=== PATIENT | female | born 1990 ===

== ENCOUNTER 2017-02-02 06:57 | Inpatient (IN) | payer OTHER ==
[~2017-02-02] VITALS: Ht 170.2 cm; Wt 87.0 kg
[2017-02-02 07:02] VITALS: BP 135/76
[2017-02-02] MEDS ORDERED: LR 1,000 ML IV SCH (07:15)
[2017-02-02] MEDS ORDERED: LACTATED RINGER'S 1000 ML IV STA (07:15)
[2017-02-02] MEDS ORDERED: AMPICILLIN SOD 2 GM in D5W MINI-BAG PLUS 100 ML IV STA (07:15)
[2017-02-02] MEDS ORDERED: OXYTOCIN 30 UNITS IN 0.9% NaCl 500ML IV BAG (J2590) As Ordered ONE (07:20)
[2017-02-02 07:45] LABS: MEAN CORPUSCULAR HEMOGLOBIN 31.2 pg (27.0-33.0); MEAN CORPUSCULAR HGB CONC 33.9 g/dl (32.0-36.5); MEAN CORPUSCULAR VOLUME 92.1 fl (80.0-96.0); RED CELL DISTRIBUTION WIDTH 12.4 % (11.5-14.5); WHITE BLOOD COUNT 16.6 K/mm3 (4.0-10.0)
[2017-02-02] MEDS ORDERED: PRENTAB9 PO (08:03)
[2017-02-02 08:24] LABS: CORD GAS ABE A -5.3; CORD GAS HCO3 A 20.5 MEQ/L; CORD GAS O2 SAT A 56.9 %; CORD GAS PCO2 A 40.8 mmHg; CORD GAS PH A 7.319 UNITS; CORD GAS PO2 A 25.6 mmHg; CORD GAS SBC A 19.2 MEQ/L; CORD GAS TCO2 A 21.8 MEQ/L; UMBIL& VEN HCO3 18.5 MEQ/L; UMBIL&VEN PARTIAL PRESSURE CO2 37.4 mmHg; UMBIL&VEN. PH 7.312 UNITS; UMBIL&VENOUS O2 SAT 60.1 %; UMBIL&VENOUS TCO2 19.6 MEQ/L
[2017-02-02 08:42] VITALS: BP 137/69
[2017-02-02] MEDS ORDERED: OXYTOCIN DRIP 30 UNITS in APPROPRIATE DILUENT 1 EA IV SCH (08:48)
--- NOTE | 2017-02-02 08:59 | HPEPDOC ---
Obstetrical History & Physical General Date of Admission Feb 02, 2017 at 07:14 History of Present Illness Julia is a 27yo with griffiths IUP at 39w3d who presents to L&D with lower back pain/possible ctx, no LOF, mucousy discharge with tinge of blood, good movement. Started feeling pains around 0300 and have continued. Also endorses an episode of diarrhea in the night. No fevers/chills/n/v/. 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 +GBS in urine excessive weight gain (40 pounds) Height (inches): 67 Pre- weight (lbs.): 154 Admission Weight (lbs.): 194 Change in Weight (lbs.): 40 Past Medical History Past Obstetrical History : Past Obstetrical History: Primgravida PHARMACEUTICAL DETAILER History: No pertinent history Past Medical History Medical History benign Surgical History: Denies/None Family History Significant Family History: No pertinent family hx Social History Marital Status: Family situation: Spouse/partner home Psychosocial History: No pertinent psych hx * Smoker: non-smoker Alcohol: Denies Drugs: denies Imunizations Tdap status: current Influenza Status: current Allergies Coded Allergies: No Known Allergies (Unverified , 02/02/17) Medications Scheduled Multivitamins/ ( 27-0.8 mg) 1 Tab Tab 1 TAB PO DAILY Physical Examination Physical Examination GENERAL: Alert and oriented times three. BREAST: . ABDOMEN: Gravid and non-tender to touch. FETUS: Is vertex (VTX) by sterile vaginal examination (SVE) EXTREMITIES: trace edema of BLE Vital Signs/I&O Vital Signs Date Time Temp Pulse Resp B/P Pulse Ox O2 Delivery O2 Flow Rate FiO2 02/02/17 08:42 100.0 96 18 137/69 Room Air Laboratory Data 24H LABS Laboratory Tests 2 02/02/17 07:25: 02/02/17 08:08: Blood Gas Bicarbonate Standard 18.0, Cord Arterial Base Excess (Standard 19.2, Cord Arterial Bld Oxygen Saturation 56.9, Cord Arterial Blood Base Excess -5.3, Cord Arterial Blood HCO3 20.5, Cord Arterial Blood PCO2 40.8, Cord Arterial Blood PO2 25.6, Cord Arterial Blood Total CO2 21.8, Cord Arterial Blood pH 7.319 , Cord Venous Blood pH 7.312, Cord Venous Blood PCO2 37.4, Cord Venous Blood PO2 28.0, Cord Venous Blood Total CO2 19.6, Cord Venous Blood HCO3 18.5, Cord Venous Blood Base Excess -7.0, Cord Venous Blood Oxygen Saturation 60.1 02/02/17 08:32: Serology Scanned Report Hepatitis B Testing CBC/BMP Laboratory Tests 02/02/17 07:25 Red Blood Count 4.70, Mean Corpuscular Volume 92.1, Mean Corpuscular Hemoglobin 31.2, Mean Corpuscular Hemoglobin Concent 33.9, Red Cell Distribution Width 12.4 Pertinent Laboratoy Data Blood Type: O+ RBC Antibody Screen: Negative HIV: Negative Hepatitis B: Negative Hepatitis C: Unknown Rapid Plasma Reagin: Nonreactive Rubella: Immune Varicella: Immune Chlamydia/Gonorrhea: Negative Group B Streptococcus: Positive Cystic Fibrosis: Positive Glucose Tolerance Test: 94 Anatomy Ultrasound Ultrasound Date: Sep 21, 2016 Placenta Location: Anterior Normal Anatomy: Yes Placenta Previa: No Vaginal Examination Dilation: 10 cm Effacement: 80+% Station: -1, 0 Cervical Consistency: Soft Cervical Position: Other (C/C/0) Presentation: Cephalic presentation Assessment Heart Rate (FHR): 135 Variability: Moderate Accelerations: Positive Decelerations: None Tocometer Contractions: Yes Frequency: regular Duration: greater than 60 seconds Strength: palpated as strong Assessment/Plan Assessment Julia is a 27yo with griffiths IUP at 39w3d in active labor presenting C/C/0 with Cat I FHRT. Regular painful ctx. Cephalic by SCE. PMhx: benign course uncomplicated. GBS positive urine. CF carrier but FOB is negative. 40 lb weight gain. Plan Admit and orient. Managing Attorney and consent. Diet: clear liquids Group B Streptococcus positive: Amp 2/1 Labs and intravenous (IV) per unit protocol. Lactated Ringers (LR): Bolus 1000 mL, then at 125 mL/hr. Anticipate normal spontaneous delivery () Dr. Nely Rm MD CalvertNELY Morton MD Feb 02, 2017 08:59
[2017-02-02] MEDS ORDERED: DIBUCAINE 1% OINTMENT 30GM TOP PRN (09:00)
[2017-02-02] MEDS ORDERED: ANUSOL HC CREAM 30GM TOP PRN (09:00)
[2017-02-02] MEDS ORDERED: RHOGAM 300 MCG (1500 IU) INJ (J2790) IM SCH (09:00)
[2017-02-02] MEDS ORDERED: MEASLES,MUMPS,RUBELLA VACCINE INJ (MMR-II) (90707) SC SCH (09:00)
[2017-02-02] MEDS ORDERED: IBUPROFEN 800 MG TAB PO PRN (09:00)
[2017-02-02 09:34] VITALS: BP 136/64
--- NOTE | 2017-02-02 09:44 | DNPDOC ---
Delivery Note Delivery Note DATE OF DELIVERY: Feb 02, 2017 at 0750 PREDELIVERY DIAGNOSIS: 39w3d gestation and labor. POST DELIVERY DIAGNOSIS: Delivered PROCEDURE: uncomplicated vacuum assisted vaginal delivery ACCOUNTS PAYABLE ASSISTANT: Dr. Aleshia Rm MD ANESTHESIA: lidocaine for repair ESTIMATED BLOOD LOSS: 250 mL. FINDINGS: 7 pound 6 ounce male , Score 8/9 DELIVERY SUMMARY: Julia is a 27yo G1 now P1001 who was admitted to L&D for active labor presenting at C/C/0 with desire to push. AROM performed with light meconium noted. She then had an uncomplicated low vacuum assisted vaginal delivery of a viable male at 0750 on 03 February 2016 at 39w3d. She progressed to C/C/+2 and was noted to have sustained deceleration between 80's and 110's (FHR baseline on presentation was 135). Due to NRFHT, I made the decision to assist her efforts with vacuum assisted vaginal delivery. position confirmed OA and senior software engineer analytics Dr. Garcias was present for delivery. Suction cup was applied at the flexion point along the midline sagittal suture. Appropriate suction was applied. With 1 set of push/pulls and no pop-offs, head was delivered OA, restituted TARIQ. No nuchal cord. Right anterior shoulder delivered followed by posterior shoulder and corpus. Vigorous spontaneous cry noted. Baby placed on mother's abdomen for a moment to clamp x2 and cut the umbilical cord, then the infant was immediately handed off to the warmer. Apgars 8/9, weight 3344g ( 7lb6oz). Blood gases obtained secondary to VAVD having been performed for NRFHT (pHv 7.312 BE -7, pHa 7.319 BE -5.3). With gentle downward guidance and suprapubic pressure, placenta delivered spontaneously and intact. Fundal massage until uterine fundus firm. Pitocin 30 units IV bolus administered. Inspection of perineum and vaginal wall revealed 2mll and right labial abrasion closed with 3.0/4.0 vicryl suture with good hemostasis under local lidocaine injection for anesthesia. Mom and infant in stable condition. Inspection of revealed no scalp or facial bruising, lacerations, or edema, and full range of motion of all extremities present. MD JEAN CARLOS Braxton KATRINA D. MD Feb 02, 2017 09:44
[2017-02-02] MEDS ORDERED: LIDOCAINE 1% MDV INJ 50 ML VIAL INFIL ONE (09:45)
[2017-02-02 10:45] VITALS: BP 131/62
[2017-02-02] MEDS ORDERED: AMPICILLIN SOD 1 GM in D5W MINI-BAG PLUS 50 ML IV SCH (11:15)
[2017-02-02] MEDS: ACETAMINOPHEN 500 MG TAB PO PRN ×2 (11:35→18:25)
[2017-02-02 18:08] VITALS: BP 135/77
[2017-02-02] MEDS: DOCUSATE SODIUM 100 MG CAP PO SCH ×2 (20:49→21:00)
[2017-02-03] MEDS: ACETAMINOPHEN 500 MG TAB PO PRN ×2 (01:13→20:19)
[2017-02-03 06:10] VITALS: BP 124/71
[2017-02-03] MEDS: PRENATAL VITAMIN TAB PO SCH (07:52)
[2017-02-03] MEDS: DOCUSATE SODIUM 100 MG CAP PO SCH ×2 (07:52→20:18)
[2017-02-03 18:10] VITALS: BP 114/54
--- NOTE | 2017-02-03 18:27 | IPN ---
DATE: 02/03/2017 This patient and requested circumcision of their male . After discussing risks and benefits of circumcision, the medical and nonmedical indications for circumcision, the penile block and the aftercare, answering all questions, expressed understanding of the procedure and aftercare, signed and witnessed consent form. We await the clearance by the community relations advisor.
[2017-02-03 20:25] VITALS: BP 114/54
[2017-02-04 06:11] VITALS: BP 133/77
[2017-02-04] MEDS: PRENATAL VITAMIN TAB PO SCH (08:19)
[2017-02-04] MEDS: DOCUSATE SODIUM 100 MG CAP PO SCH (08:20)
[2017-02-04] MEDS ORDERED: NUPE1OIN2 TOP (08:25)
[2017-02-04] MEDS ORDERED: ANUS2.5C2 TOP (08:25)
[2017-02-04] MEDS ORDERED: ACET50TA PO (08:25)
[2017-02-04] MEDS ORDERED: IBUP-1114 PO (08:25)
[2017-02-04] MEDS ORDERED: COLA100C PO (08:25)
--- NOTE | 2017-02-05 07:57 | DSES ---
DATE OF ADMISSION: 02/02/2017 DATE OF DISCHARGE: 02/04/2017 This lady is a 27-year-old, 1, now para 1, admitted in spontaneous labor. Spontaneous vaginal delivery of live female infant, 7 pounds 0 ounces, 3022 grams, of 8 and 9 at one and five minutes respectively. She sustained a small first-degree laceration that was repaired in the usual fashion. She is a CF carrier, her is CF negative. On her second day, we discussed phlebitis, cystitis, mastitis, endometritis and cellulitis; diet, exercise and pain management; perineal, breast and wound care. Blood pressure today is 133/77, respirations 18, pulse 79, temperature 97.9. Admitting hemoglobin was 14.7, hematocrit 43.2 and platelets were 203. Her arterial pH at delivery was 7.31 and base excess -5.3, venous pH 7.31 and base excess -7.0. The rest of examination was unremarkable. She is normocephalic, atraumatic. Neck full range of motion. Pupils equal and reactive light. Chest is clear bilaterally at the bases. Distal pulses symmetric. No evidence of deep vein thrombosis (DVT), pulmonary embolus (PE) or superficial phlebitis. Uterus is 2 below. Lochia is moderate. Four quadrant bowel sounds are noted. Perineum is healing. No rashes, lesions or pruritus. No arthralgia or myalgia. No complaints of cough, wheezes, shortness of breath or dyspnea on exertion. No chest pain. No bleeding. Neurologic complete. No incontinence, urgency or frequency. She does not smoke or drink. Does not abuse drugs. She is . There is no domestic violence. In summary, we have a term gestation who delivered a live female discharged to followup in the office in six weeks' time. Medications will be dispensed at discharge.
== END 2017-02-04 10:55 | disposition home or self-care (01) | DRG 775 ==
LOC: M LDO 06:57 → M LDI 07:14 → M OBS 10:18
PROVIDERS: ADMIT Obstetrics & Gynecology; ATTEND Obstetrics & Gynecology
PROC: 10D07Z6 Extraction of Products of Conception, Vacuum, Via Natural or Artificial Opening (ICD-10-PCS; principal; 2017-02-02)
PROC: 10907ZC Drainage of Amniotic Fluid, Therapeutic from Products of Conception, Via Natural or Artificial Opening (ICD-10-PCS; 2017-02-02)
PROC: 0HQ9XZZ Repair Perineum Skin, External Approach (ICD-10-PCS; 2017-02-02)
DX: O76 Abnormality in fetal heart rate and rhythm complicating labor and delivery (principal); Z37.0 Single live birth; Z3A.39 39 weeks gestation of pregnancy; O99.820 Streptococcus B carrier state complicating pregnancy; O70.0 First degree perineal laceration during delivery